=== PATIENT | male | born 1970 | race African-American/Black ===

== ENCOUNTER 2020-03-03 14:34 | Emergency (ER) | payer MEDICAID ==
[~2020-03-03] VITALS: Ht 182.9 cm; Wt 99.0 kg
[2020-03-03] MEDS ORDERED: HYDROCODONE/ACETAMINOPHEN 5/325MG TABLET PO ONE (15:45)
[2020-03-03] MEDS ORDERED: KETOROLAC 60MG/2ML VIAL IM ONE (16:00)
[2020-03-03 18:00] VITALS: BP 112/78
== END 2020-03-03 18:19 | disposition home or self-care (01) ==
LOC: ER 14:34
DX: T14.8XXA Other injury of unspecified body region, initial encounter (principal); M54.5 Low back pain; M54.2 Cervicalgia; V23.4XXA Motorcycle driver injured in collision with car, pick-up truck or van in traffic accident, initial encounter; Y93.89 Activity, other specified; Y92.89 Other specified places as the place of occurrence of the external cause; Y99.8 Other external cause status
CPT/HCPCS: 70490; 71045; 72131; 73560; 96372; 99285; J1885